=== PATIENT | female | born 1955 | race Caucasian/White ===

== ENCOUNTER 2017-10-21 17:01 | Inpatient (IN) | payer OTHER ==
[~2017-10-21] VITALS: Ht 157.5 cm; Wt 104.3 kg
[2017-10-21 17:01] VITALS: BP_SYST 97
[2017-10-21] MEDS ORDERED: NACL 0.9% 1,000 ML IV ONE ×2 (17:15→19:48)
[2017-10-21] MEDS ORDERED: cefTRIAXone 1 GM IVPB PREMIX 50 ML IV ONE ×2 (17:15→19:00)
[2017-10-21 17:39] LABS: HEMATOCRIT 39.3 % (36-48); MEAN CORPUSCULAR HEMOGLOBIN 32 pg (27-31)
[2017-10-21 17:42] LABS: HEMOGLOBIN 13.6 g/dL (12.0-16.0); MEAN CORPUSCULAR HGB CONC 35 % (32-36); MEAN CORPUSCULAR VOLUME 94 fL (79.0-98.0); PLATELET COUNT (AUTO) 156 K/uL (130-430); WHITE BLOOD COUNT (AUTO) 25.2 K/uL (4.8-10.8)
[2017-10-21 17:43] LABS: CALCIUM 8.2 mg/dL (8.4-11.0); CREATININE 1.64 mg/dL (0.55-1.30)
[2017-10-21 17:46] LABS: INR 1.2 (0.8-1.2); PROTHROMBIN TIME 11.7 SECS (9.5-12.5)
[2017-10-21 17:47] LABS: ALBUMIN 2.7 g/dL (3.4-4.8); TOTAL BILIRUBIN 0.7 mg/dL (0.0-1.0)
[2017-10-21 17:51] LABS: BAND % (MANUAL) 27 % (0-6); BASOPHILS % (MANUAL) 0 % (0-2); EOSINOPHILS % (MANUAL) 0 % (0-7); LYMPHOCYTES % (MANUAL) 5 % (20-46); MONOCYTES % (MANUAL) 0 % (0-11)
[2017-10-21 18:04] LABS: BILIRUBIN,URINE NEGATIVE (NEGATIVE); BLOOD, URINE 1+ (NEGATIVE); COLOR,URINE YELLOW (YELLOW); GLUCOSE,URINE NEGATIVE (NEGATIVE); KETONES,URINE NEGATIVE (NEGATIVE); LEUKOCYTE ESTERASE ,URINE 1+ (NEGATIVE); NITRITE, URINE POSITIVE (NEGATIVE); PH,URINE 5.5 (5.0-8.0); PROTEIN URINE TRACE (NEGATIVE); UROBILINOGEN,URINE 0.2 (0.2-1.0)
[2017-10-21 18:16] LABS: CLARITY/URINE HAZY (CLEAR)
[2017-10-21 18:17] LABS: BACTERIA,URINE MODERATE /HPF (None Seen); RBC,URINE 0-3 /HPF (0-3)
[2017-10-21 18:18] LABS: MUCUS,URINE None Seen /LPF (None Seen)
[2017-10-21] MEDS ORDERED: ASPIRIN 81 MG TAB.CHEW PO ONE (19:00)
[2017-10-21] MEDS ORDERED: LEVO25TA7 PO (20:53)
[2017-10-21] MEDS ORDERED: NAPR-690 PO (20:54)
[2017-10-21] MEDS ORDERED: ACETAMINOPHEN 325 MG TABLET PO PRN ×2 (21:00→22:45)
[2017-10-21] MEDS ORDERED: GENTAMICIN 120 mg/100 mL NS 100 ML IV ONE (21:03)
[2017-10-21 21:13] VITALS: BP_SYST 111
[2017-10-21] MEDS ORDERED: 0.45% NS 250 ML IV ONE (22:00)
[2017-10-21] MEDS ORDERED: traMADol HCL HCL 50 MG TABLET (ULTRAM) PO PRN ×2 (22:45)
[2017-10-21] MEDS ORDERED: TEMAZEPAM 15 MG CAPSULE PO PRN (23:00)
[2017-10-21] MEDS ORDERED: KCL 20 mEq in 100 mL (PREMIX) 100 ML IV ONE (23:10)
[2017-10-22] MEDS ORDERED: ASPIRIN 81 MG TABLET(ECOTRIN) PO ONE
[2017-10-22] MEDS ORDERED: PANTOPRAZOLE GRANULES PACKET 40 MG GT ONE
[2017-10-22 00:12] VITALS: BP_SYST 119
[2017-10-22] MEDS: POTASSIUM CHLORIDE 10 MEQ in NACL 0.9% 1,000 ML IV SCH ×3 (00:18→13:24)
[2017-10-22] MEDS ORDERED: ENOXAPARIN SODIUM 40 MG/0.4 ML SYRINGE SUBCUT ONE (00:30)
[2017-10-22] MEDS ORDERED: PANTOPRAZOLE SODIUM 40 MG TAB PO SCH ×2 (01:00→09:00)
[2017-10-22] MEDS: LACTOBACILLUS RHAMNOSUS GG 1 CAP CAPSULE PO SCH ×2 (01:06→08:07)
[2017-10-22] MEDS ORDERED: GENTAMICIN 120 mg/100 mL NS 100 ML IV ONE ×2 (04:00→04:19)
[2017-10-22] MEDS ORDERED: LEVOTHYROXINE SODIUM 0.025 MG TABLET PO SCH (07:30)
[2017-10-22 07:47] LABS: HEMATOCRIT 35.4 % (36-48); HEMOGLOBIN 12.2 g/dL (12.0-16.0); MEAN CORPUSCULAR HEMOGLOBIN 33 pg (27-31); MEAN CORPUSCULAR HGB CONC 35 % (32-36); MEAN CORPUSCULAR VOLUME 95 fL (79.0-98.0); PLATELET COUNT (AUTO) 91 K/uL (130-430); RED BLOOD CELL COUNT(AUTO) 3.74 MIL/uL (4.2-6.2); RED CELL DISTRIBUTION WIDTH 13.4 % (9.0-15.0); WHITE BLOOD COUNT (AUTO) 25.3 K/uL (4.8-10.8)
[2017-10-22 08:03] VITALS: BP_SYST 130
[2017-10-22] MEDS ORDERED: ASPIRIN 81 MG TABLET(ECOTRIN) PO SCH (09:00)
[2017-10-22] MEDS ORDERED: ENOXAPARIN SODIUM 40 MG/0.4 ML SYRINGE SUBCUT SCH (09:00)
[2017-10-22] MEDS ORDERED: PANTOPRAZOLE GRANULES PACKET 40 MG PO SCH (09:00)
[2017-10-22] MEDS ORDERED: PANTOPRAZOLE GRANULES PACKET 40 MG GT SCH (09:00)
[2017-10-22 09:01] LABS: POTASSIUM 3.9 mmol/L (3.5-5.1)
[2017-10-22 09:02] LABS: CALCIUM 7.4 mg/dL (8.4-11.0); CREATININE 1.23 mg/dL (0.55-1.30)
[2017-10-22 09:08] LABS: ALBUMIN 2.3 g/dL (3.4-4.8); TOTAL BILIRUBIN 0.6 mg/dL (0.0-1.0)
[2017-10-22 09:34] LABS: FREE T4 (FREE THYROXINE) 1.3 ng/dl (0.8-1.5); THYROID STIMULATING HORMONE 1.32 uIu/mL (0.36-3.74); URIC ACID 4.5 mg/dL (2.4-7.0)
[2017-10-22] MEDS ORDERED: LEVOFLOXACIN 500 MG TABLET PO ONE (10:00)
[2017-10-22 10:35] LABS: BAND % (MANUAL) 8 % (0-6); EOSINOPHILS % (MANUAL) 0 % (0-7); LYMPHOCYTES % (MANUAL) 12 % (20-46); MONOCYTES % (MANUAL) 1 % (0-11)
[2017-10-22 10:36] LABS: BASOPHILS % (MANUAL) 0 % (0-2)
[2017-10-22] MEDS ORDERED: NACL 0.9% 1,000 ML IV ONE ×2 (11:00→11:15)
[2017-10-22 12:15] VITALS: BP_SYST 92
[2017-10-22 13:18] VITALS: BP_SYST 101
[2017-10-22] MEDS ORDERED: metroNIDAZOLE 500 MG TABLET PO SCH (14:00)
[2017-10-22 16:02] VITALS: BP_SYST 113; BP_SYST 135
[2017-10-22 16:14] VITALS: BP_SYST 113
[2017-10-22] MEDS ORDERED: ONDANSETRON HCL 4 MG/2 ML VIAL IVP PRN (17:15)
[2017-10-23] MEDS ORDERED: metroNIDAZOLE 500 MG TABLET PO ONE (06:00)
[2017-10-23] MEDS ORDERED: LEVOFLOXACIN 500 MG TABLET PO SCH (10:00)
== END 2017-10-22 17:35 | disposition short-term general hospital (02) | DRG 871 ==
LOC: SED 17:01 → STU 20:51
PROVIDERS: ADMIT Internal Medicine; ATTEND Internal Medicine
DX: A41.9 Sepsis, unspecified organism (principal); R65.21 Severe sepsis with septic shock; I21.A1 Myocardial infarction type 2; N17.0 Acute kidney failure with tubular necrosis; N13.4 Hydroureter; N20.2 Calculus of kidney with calculus of ureter; N13.6 Pyonephrosis; N11.1 Chronic obstructive pyelonephritis; E86.0 Dehydration; E03.9 Hypothyroidism, unspecified; K57.90 Diverticulosis of intestine, part unspecified, without perforation or abscess without bleeding; E66.01 Morbid (severe) obesity due to excess calories; Z79.899 Other long term (current) drug therapy; Z87.442 Personal history of urinary calculi; Z82.49 Family history of ischemic heart disease and other diseases of the circulatory system
CPT/HCPCS: 36415; 71045; 80053; 81000-TC; 83605; 84439; 84443-TC; 84484; 84550-TC; 85007; 85027; 85610-TC; 85730-TC; 87040-TC; 87086; 87186-TC; 93005; 93306; 96361; 96365; 99291; J0696; J1580; J1650; J2405; J3480; J7030; J7050; J7060